=== PATIENT | female | born 1990 | race Caucasian/White ===

== ENCOUNTER 2020-10-04 05:29 | Inpatient (IN) | payer MEDICAID ==
[~2020-10-04] VITALS: Ht 165.1 cm; Wt 65.8 kg
[2020-10-04] MEDS: HALOPERIDOL 5 MG TABLET PO PRN (10:09)
[2020-10-04] MEDS: LORazepam 2 MG TABLET PO PRN (10:09)
[2020-10-04 10:45] VITALS: BP 127/93
[2020-10-04] MEDS ORDERED: INFLUENZA VIRUS VACCINE QVS 2020-21 (6MO+)/PF 60 MCG/0.5 ML SYRINGE IM ONE (11:15)
[2020-10-04] MEDS: BuPROPion HCL XL 150 MG ER TABLET PO SCH (13:21)
[2020-10-04 16:02] VITALS: BP 105/60
[2020-10-05 01:33] VITALS: BP 114/72
[2020-10-05] MEDS ORDERED: PETROLATUM,WHITE 28 GM JELLY TP PRN (07:00)
[2020-10-05] MEDS ORDERED: CloNIDine HCL 0.1 MG TABLET PO PRN (07:00)
[2020-10-05] MEDS ORDERED: ACETAMINOPHEN 325 MG TABLET PO PRN (07:00)
[2020-10-05] MEDS ORDERED: LOPERAMIDE HCL 2 MG CAPSULE PO PRN (07:00)
[2020-10-05] MEDS ORDERED: GuaiFENesin/D-METHORPHAN [SUGAR-FREE] 200-20MG/10 ML SYRUP UDCUP PO PRN (07:00)
[2020-10-05] MEDS ORDERED: MAG HYDROX/AL HYDROX/SIMETH ES 30 ML SUSPENSION UDCUP PO PRN (07:00)
[2020-10-05] MEDS ORDERED: ALBUTEROL SULFATE HFA 90 MCG/PUFF 8 GM INHALER IH PRN (07:00)
[2020-10-05] MEDS ORDERED: ONDANSETRON HCL 4 MG TABLET PO PRN (07:00)
[2020-10-05] MEDS ORDERED: MAGNESIUM HYDROXIDE SUSPENSION 30 ML UDCUP PO PRN (07:00)
[2020-10-05] MEDS ORDERED: IBUPROFEN 400 MG TABLET PO PRN (07:00)
[2020-10-05] MEDS ORDERED: DOCUSATE SODIUM 100 MG CAPSULE PO PRN (07:00)
[2020-10-05 08:10] VITALS: BP 112/74
[2020-10-05] MEDS: BuPROPion HCL XL 150 MG ER TABLET PO SCH (08:44)
[2020-10-05 16:08] VITALS: BP 112/78
[2020-10-05] MEDS: GABAPENTIN 300 MG CAPSULE PO SCH (16:50)
[2020-10-06 00:38] VITALS: BP 102/77
[2020-10-06 08:13] VITALS: BP 100/61
[2020-10-06] MEDS: GABAPENTIN 300 MG CAPSULE PO SCH ×2 (08:48→16:54)
[2020-10-06] MEDS: BuPROPion HCL XL 150 MG ER TABLET PO SCH (08:48)
[2020-10-06 08:50] LABS: BASOPHILS % (AUTO) 0.2 % (0.0-2.0); EOSINOPHILS % (AUTO) 2.5 % (1.0-6.0); HEMATOCRIT 38.5 % (36-46); HEMOGLOBIN 12.9 g/dL (12.0-16.0); LYMPHOCYTES # (AUTO) 2.1 K/uL (1.0-4.8); LYMPHOCYTES % (AUTO) 28.5 % (22.0-44.0); MEAN CORPUSCULAR HEMOGLOBIN 30.8 pg (26.0-34.0); MEAN CORPUSCULAR HGB CONC 33.6 G/dL (31.0-37.0); MEAN CORPUSCULAR VOLUME 92 fL (80-100); MONOCYTES # (AUTO) 0.6 K/uL (0.1-1.0); MONOCYTES % (AUTO) 7.9 % (2.0-9.0); NEUTROPHILS # (AUTO) 4.4 K/uL (1.8-7.7); NEUTROPHILS % (AUTO) 60.9 % (40.0-70.0); PLATELET COUNT (AUTO) 343 K/uL (150-450); RED CELL DISTRIBUTION WIDTH 12.3 % (11.5-14.5)
[2020-10-06 09:00] LABS: APPEARANCE,URINE CLOUDY (CLEAR); BILIRUBIN,URINE NEGATIVE (NEGATIVE); GLUCOSE, URINE (UA) NEGATIVE (NEGATIVE); KETONES,URINE NEGATIVE (NEGATIVE); LEUKOCYTE ESTERASE ,URINE SMALL (NEGATIVE); NITRATE,URINE POSITIVE (NEGATIVE); OCCULT BLOOD,URINE NEGATIVE (NEGATIVE); PROTEIN,URINE NEGATIVE (NEGATIVE)
[2020-10-06 09:06] LABS: AMPHET/METH SCREEN,URINE POSITIVE (NEGATIVE); BARBITURATE SCREEN, URINE NEGATIVE (NEGATIVE); BENZODIAZEPINES SCREEN,URINE NEGATIVE (NEGATIVE); CANNABINOID SCREEN,URINE NEGATIVE (NEGATIVE); COCAINE SCREEN,URINE POSITIVE (NEGATIVE); METHADONE SCREEN, URINE NEGATIVE (NEGATIVE); OPIATE SCREEN,URINE NEGATIVE (NEGATIVE)
[2020-10-06 09:07] LABS: PHENCYCLIDINE SCREEN,URINE NEGATIVE (NEGATIVE)
[2020-10-06 09:45] LABS: BACTERIA,URINE Many /HPF (None Seen); RBC,URINE None Seen /HPF (0-2); SQUAMOUS EPITHELIAL CELL,UR Many /LPF (None Seen)
[2020-10-06 09:52] LABS: ALANINE AMINOTRANSFERASE 23 U/L (12-78); ALBUMIN 3.2 g/dL (3.4-5.0); ALKALINE PHOSPHATASE 43 U/L (46-116); ANION GAP 8 mmol/L (8-16); ASPARTATE AMINOTRANSFERASE 16 U/L (15-37); BILIRUBIN,TOTAL 0.6 mg/dL (0.1-1.0); CALCIUM, TOTAL 8.3 mg/dL (8.8-10.5); CARBON DIOXIDE 26 mmol/L (22-29); CHLORIDE 103 mmol/L (98-107); CHOL/HDL RATIO 3.3 (3.9-5.7); CHOLESTEROL 144 mg/dL (131-200); FREE T4 (FREE THYROXINE) 0.85 ng/dL (0.76-1.46); GLOMERULAR FILTR. RATE CALC > 60 mL/min (>60); GLUCOSE,RANDOM 132 mg/dL (70-110); HCG,QUANTITATIVE < 1 mIU/mL (0-6); HDL CHOLESTEROL 44 mg/dL (40-60); LDL CHOL (CALC.) 87 mg/dL (0-130); POTASSIUM 3.8 mmol/L (3.5-5.1); SODIUM SERUM 137 mmol/L (136-145); THYROID STIMULATING HORMONE 1.42 uIU/mL (0.36-3.74); TOTAL PROTEIN, SERUM 6.1 g/dL (6.4-8.2); TRIGLYCERIDES 63 mg/dL (15-150); UREA NITROGEN, BLOOD 12 mg/dL (7-18)
[2020-10-06] MEDS: CEPHALEXIN MONOHYDRATE 500 MG CAPSULE PO SCH ×2 (12:35→16:54)
[2020-10-06 16:11] VITALS: BP 108/70
[2020-10-06] MEDS: LORazepam 2 MG TABLET PO PRN (16:54)
[2020-10-07] VITALS (8 sets, daily range): BP systolic 101–127; BP diastolic 59–87
[2020-10-07] MEDS: BuPROPion HCL XL 150 MG ER TABLET PO SCH (08:46)
[2020-10-07] MEDS: CEPHALEXIN MONOHYDRATE 500 MG CAPSULE PO SCH ×3 (08:46→16:59)
[2020-10-07] MEDS: GABAPENTIN 300 MG CAPSULE PO SCH ×2 (08:46→16:59)
[2020-10-07] MEDS: HALOPERIDOL 5 MG TABLET PO PRN (12:28)
[2020-10-07] MEDS: LORazepam 2 MG TABLET PO PRN (12:28)
[2020-10-07] MEDS ORDERED: LORazepam 2 MG TABLET PO PRN (13:45)
[2020-10-07] MEDS: NICOTINE 14 MG/24 HOUR PATCH TD PRN (13:46)
[2020-10-07] MEDS ORDERED: CYANOCOBALAMIN 1,000 MCG/ML VIAL IM ONE (14:00)
[2020-10-07] MEDS: FOLIC ACID 1 MG TABLET PO SCH (14:03)
[2020-10-07] MEDS: MULTIVITAMINS WITH MINERALS, THERAPEUTIC TABLET PO SCH (14:03)
[2020-10-07] MEDS: THIAMINE 100 MG TABLET PO SCH (16:59)
[2020-10-08] VITALS (8 sets, daily range): BP systolic 100–112; BP diastolic 62–70
[2020-10-08] MEDS ORDERED: LORazepam 2 MG TABLET PO PRN (07:00)
[2020-10-08] MEDS: MULTIVITAMINS WITH MINERALS, THERAPEUTIC TABLET PO SCH (08:59)
[2020-10-08] MEDS: BuPROPion HCL XL 150 MG ER TABLET PO SCH (08:59)
[2020-10-08] MEDS: THIAMINE 100 MG TABLET PO SCH ×2 (08:59→16:43)
[2020-10-08] MEDS: CEPHALEXIN MONOHYDRATE 500 MG CAPSULE PO SCH ×3 (08:59→16:43)
[2020-10-08] MEDS: FOLIC ACID 1 MG TABLET PO SCH (08:59)
[2020-10-08] MEDS: GABAPENTIN 300 MG CAPSULE PO SCH ×2 (09:00→16:43)
[2020-10-08] MEDS: LORazepam 2 MG TABLET PO SCH ×4 (09:00→20:44)
[2020-10-08] MEDS: ZOLPIDEM TARTRATE 10 MG TABLET PO PRN (20:54)
[2020-10-09 08:00] VITALS: BP 100/59
[2020-10-09] MEDS: GABAPENTIN 300 MG CAPSULE PO SCH ×2 (08:03→16:11)
[2020-10-09] MEDS: THIAMINE 100 MG TABLET PO SCH ×2 (08:04→16:11)
[2020-10-09] MEDS: MULTIVITAMINS WITH MINERALS, THERAPEUTIC TABLET PO SCH (08:04)
[2020-10-09] MEDS: LORazepam 2 MG TABLET PO SCH ×4 (08:04→21:25)
[2020-10-09] MEDS: BuPROPion HCL XL 150 MG ER TABLET PO SCH (08:04)
[2020-10-09] MEDS: CEPHALEXIN MONOHYDRATE 500 MG CAPSULE PO SCH ×3 (08:05→16:11)
[2020-10-09] MEDS: FOLIC ACID 1 MG TABLET PO SCH (08:05)
[2020-10-09 08:17] VITALS: BP 104/79
[2020-10-09 16:14] VITALS: BP 109/66
[2020-10-09 16:15] VITALS: BP 109/66
[2020-10-09 17:45] VITALS: BP 112/65
[2020-10-09] MEDS: HALOPERIDOL 5 MG TABLET PO PRN (17:56)
[2020-10-09] MEDS: NICOTINE 14 MG/24 HOUR PATCH TD PRN (18:20)
[2020-10-09] MEDS: ZOLPIDEM TARTRATE 10 MG TABLET PO PRN (21:25)
[2020-10-10 06:50] VITALS: BP 115/71
[2020-10-10] MEDS ORDERED: LORazepam 1 MG TABLET PO PRN (07:00)
[2020-10-10 08:29] VITALS: BP 104/60
[2020-10-10 08:47] VITALS: BP 104/60
[2020-10-10] MEDS: GABAPENTIN 300 MG CAPSULE PO SCH ×2 (09:01→16:42)
[2020-10-10] MEDS: FOLIC ACID 1 MG TABLET PO SCH (09:01)
[2020-10-10] MEDS: BuPROPion HCL XL 150 MG ER TABLET PO SCH (09:01)
[2020-10-10] MEDS: CEPHALEXIN MONOHYDRATE 500 MG CAPSULE PO SCH ×3 (09:01→16:42)
[2020-10-10] MEDS: THIAMINE 100 MG TABLET PO SCH ×2 (09:02→16:42)
[2020-10-10] MEDS: LORazepam 1 MG TABLET PO SCH ×4 (09:02→20:51)
[2020-10-10] MEDS: MULTIVITAMINS WITH MINERALS, THERAPEUTIC TABLET PO SCH (09:02)
[2020-10-10 11:00] VITALS: BP 110/80
[2020-10-10] MEDS: HALOPERIDOL 5 MG TABLET PO PRN (11:01)
[2020-10-10 16:05] VITALS: BP 105/60
[2020-10-10 16:19] VITALS: BP 104/60
[2020-10-10] MEDS: ZOLPIDEM TARTRATE 10 MG TABLET PO PRN (23:31)
[2020-10-11 05:39] VITALS: BP 107/71
[2020-10-11] MEDS ORDERED: LORazepam 1 MG TABLET PO PRN (07:00)
[2020-10-11] MEDS: GABAPENTIN 300 MG CAPSULE PO SCH ×2 (08:33→16:33)
[2020-10-11] MEDS: MULTIVITAMINS WITH MINERALS, THERAPEUTIC TABLET PO SCH (08:33)
[2020-10-11] MEDS: CEPHALEXIN MONOHYDRATE 500 MG CAPSULE PO SCH (08:33)
[2020-10-11] MEDS: THIAMINE 100 MG TABLET PO SCH ×2 (08:33→16:33)
[2020-10-11] MEDS: BuPROPion HCL XL 150 MG ER TABLET PO SCH (08:33)
[2020-10-11] MEDS: FOLIC ACID 1 MG TABLET PO SCH (08:35)
[2020-10-11 08:53] VITALS: BP 98/59
[2020-10-11] MEDS ORDERED: BUPR-93 PO (15:09)
[2020-10-11] MEDS ORDERED: GABA-1181 PO (15:10)
[2020-10-11 16:09] VITALS: BP 113/66
== END 2020-10-11 21:52 | disposition home or self-care (01) | DRG 751 ==
LOC: B3A 08:56 → B2S 10-11 08:50
PROVIDERS: ADMIT Psychiatry & Neurology Psychiatry; ATTEND Psychiatry & Neurology Psychiatry
DX: F33.3 Major depressive disorder, recurrent, severe with psychotic symptoms (principal); R45.851 Suicidal ideations; Z59.0 Homelessness; Z91.5 Personal history of self-harm; K59.00 Constipation, unspecified; F19.10 Other psychoactive substance abuse, uncomplicated; F10.20 Alcohol dependence, uncomplicated; Y90.9 Presence of alcohol in blood, level not specified; F15.10 Other stimulant abuse, uncomplicated; F14.10 Cocaine abuse, uncomplicated; Z79.899 Other long term (current) drug therapy; Z28.21 Immunization not carried out because of patient refusal
CPT/HCPCS: 80307; 84436; 84439; 84443; 87086; J3420

== ENCOUNTER 2020-11-23 19:52 | Inpatient (IN) | payer MEDICAID ==
[~2020-11-23] VITALS: Ht 170.2 cm; Wt 64.0 kg
[~2020-11-23 19:52] MED LIST: BUPR-93 PO; GABA-1181 PO
[2020-11-23 22:22] LABS: COVID AG,FIA SOURCE NASOPHARYNGEAL
[2020-11-23] MEDS ORDERED: HALOPERIDOL 5 MG TABLET PO ONE (23:00)
[2020-11-23 23:08] LABS: BASOPHILS % (AUTO) 0.4 % (0.0-2.0); EOSINOPHILS % (AUTO) 1.3 % (1.0-6.0); LYMPHOCYTES # (AUTO) 2.7 K/uL (1.0-4.8); LYMPHOCYTES % (AUTO) 31.9 % (22.0-44.0); MEAN CORPUSCULAR HEMOGLOBIN 29.8 pg (26.0-34.0); MEAN CORPUSCULAR HGB CONC 33.4 G/dL (31.0-37.0); MEAN CORPUSCULAR VOLUME 89 fL (80-100); MONOCYTES # (AUTO) 0.5 K/uL (0.1-1.0); MONOCYTES % (AUTO) 5.7 % (2.0-9.0); NEUTROPHILS # (AUTO) 5.1 K/uL (1.8-7.7); NEUTROPHILS % (AUTO) 60.7 % (40.0-70.0); PLATELET COUNT (AUTO) 382 K/uL (150-450); RED BLOOD CELL COUNT(AUTO) 4.38 MIL/uL (4.00-5.20); RED CELL DISTRIBUTION WIDTH 12.7 % (11.5-14.5)
[2020-11-23 23:11] LABS: ANION GAP 9 mmol/L (8-16); CALCIUM, TOTAL 8.5 mg/dL (8.8-10.5); CARBON DIOXIDE 29 mmol/L (22-29); CHLORIDE 104 mmol/L (98-107); CREATININE 0.62 mg/dL (0.60-1.30); GLOMERULAR FILTR. RATE CALC > 60 mL/min (>60); GLUCOSE,RANDOM 101 mg/dL (70-110); POTASSIUM 3.1 mmol/L (3.5-5.1); SODIUM SERUM 142 mmol/L (136-145); UREA NITROGEN, BLOOD 5 mg/dL (7-18)
[2020-11-23 23:34] LABS: ALANINE AMINOTRANSFERASE 20 U/L (12-78); ALBUMIN 3.6 g/dL (3.4-5.0); ALKALINE PHOSPHATASE 42 U/L (46-116); ASPARTATE AMINOTRANSFERASE 10 U/L (15-37); BILIRUBIN,TOTAL 0.2 mg/dL (0.1-1.0); HCG,QUANTITATIVE < 1 mIU/mL (0-6); TOTAL PROTEIN, SERUM 6.7 g/dL (6.4-8.2)
[2020-11-23] MEDS ORDERED: ChlordiazePOXIDE HCL 25 MG CAPSULE PO ONE (23:45)
[2020-11-23] MEDS ORDERED: POTASSIUM CHLORIDE 20 MEQ ER TABLET PO ONE (23:45)
[2020-11-24 00:43] LABS: AMPHET/METH SCREEN,URINE POSITIVE (NEGATIVE); BARBITURATE SCREEN, URINE NEGATIVE (NEGATIVE); BENZODIAZEPINES SCREEN,URINE NEGATIVE (NEGATIVE); CANNABINOID SCREEN,URINE NEGATIVE (NEGATIVE); COCAINE SCREEN,URINE NEGATIVE (NEGATIVE); METHADONE SCREEN, URINE NEGATIVE (NEGATIVE); OPIATE SCREEN,URINE NEGATIVE (NEGATIVE)
[2020-11-24 00:45] LABS: PHENCYCLIDINE SCREEN,URINE NEGATIVE (NEGATIVE)
[2020-11-24] MEDS ORDERED: HALOPERIDOL 5 MG TABLET PO PRN (09:00)
[2020-11-24] MEDS ORDERED: NICOTINE 14 MG/24 HOUR PATCH TD PRN (13:15)
[2020-11-24] MEDS: GABAPENTIN 300 MG CAPSULE PO SCH (16:56)
[2020-11-24 17:36] VITALS: BP 100/60
[2020-11-25 00:22] VITALS: BP 102/70
[2020-11-25] MEDS: ZOLPIDEM TARTRATE 10 MG TABLET PO PRN (00:29)
[2020-11-25] MEDS: BuPROPion HCL XL 150 MG ER TABLET PO SCH (08:20)
[2020-11-25] MEDS: GABAPENTIN 300 MG CAPSULE PO SCH ×2 (08:20→16:12)
[2020-11-25 10:01] VITALS: BP 100/60
[2020-11-25 17:34] VITALS: BP 100/60
[2020-11-25] MEDS: QUEtiapine FUMARATE 100 MG TABLET PO SCH (20:21)
[2020-11-26] VITALS (8 sets, daily range): BP systolic 98–172; BP diastolic 51–75
[2020-11-26] MEDS: GABAPENTIN 300 MG CAPSULE PO SCH ×2 (08:31→15:57)
[2020-11-26] MEDS: BuPROPion HCL XL 150 MG ER TABLET PO SCH (08:31)
[2020-11-26] MEDS ORDERED: DOCUSATE SODIUM 100 MG CAPSULE PO PRN (13:45)
[2020-11-26] MEDS ORDERED: CloNIDine HCL 0.1 MG TABLET PO PRN (13:45)
[2020-11-26] MEDS ORDERED: GuaiFENesin/D-METHORPHAN [SUGAR-FREE] 200-20MG/10 ML SYRUP UDCUP PO PRN (13:45)
[2020-11-26] MEDS ORDERED: LOPERAMIDE HCL 2 MG CAPSULE PO PRN (13:45)
[2020-11-26] MEDS ORDERED: MAGNESIUM HYDROXIDE SUSPENSION 30 ML UDCUP PO PRN (13:45)
[2020-11-26] MEDS ORDERED: IBUPROFEN 400 MG TABLET PO PRN (13:45)
[2020-11-26] MEDS ORDERED: ONDANSETRON HCL 4 MG TABLET PO PRN (13:45)
[2020-11-26] MEDS ORDERED: ALBUTEROL SULFATE HFA 90 MCG/PUFF 8 GM INHALER IH PRN (13:45)
[2020-11-26] MEDS ORDERED: PETROLATUM,WHITE 28 GM JELLY TP PRN (13:45)
[2020-11-26] MEDS ORDERED: ACETAMINOPHEN 325 MG TABLET PO PRN (13:45)
[2020-11-26] MEDS ORDERED: MAG HYDROX/AL HYDROX/SIMETH ES 30 ML SUSPENSION UDCUP PO PRN (13:45)
[2020-11-26] MEDS: NICOTINE 14 MG/24 HOUR PATCH TD PRN (15:57)
[2020-11-26] MEDS: LORazepam 2 MG TABLET PO PRN (15:57)
[2020-11-26] MEDS: QUEtiapine FUMARATE 100 MG TABLET PO SCH (19:52)
[2020-11-27] VITALS (7 sets, daily range): BP systolic 100–116; BP diastolic 60–72
[2020-11-27] MEDS: GABAPENTIN 300 MG CAPSULE PO SCH ×2 (09:11→16:18)
[2020-11-27] MEDS: BuPROPion HCL XL 150 MG ER TABLET PO SCH (09:11)
[2020-11-27] MEDS: LORazepam 2 MG TABLET PO PRN (16:18)
[2020-11-27] MEDS: QUEtiapine FUMARATE 100 MG TABLET PO SCH (20:33)
[2020-11-28 00:20] VITALS: BP 107/62
[2020-11-28 08:21] VITALS: BP 105/60
[2020-11-28] MEDS: BuPROPion HCL XL 150 MG ER TABLET PO SCH (08:29)
[2020-11-28] MEDS: GABAPENTIN 300 MG CAPSULE PO SCH ×2 (08:29→16:00)
[2020-11-28 09:19] LABS: BASOPHILS % (AUTO) 0.3 % (0.0-2.0); EOSINOPHILS % (AUTO) 3.4 % (1.0-6.0); HEMATOCRIT 37.1 % (36-46); HEMOGLOBIN 12.4 g/dL (12.0-16.0); LYMPHOCYTES # (AUTO) 2.9 K/uL (1.0-4.8); LYMPHOCYTES % (AUTO) 37.9 % (22.0-44.0); MEAN CORPUSCULAR HEMOGLOBIN 29.7 pg (26.0-34.0); MEAN CORPUSCULAR HGB CONC 33.3 G/dL (31.0-37.0); MEAN CORPUSCULAR VOLUME 89 fL (80-100); MONOCYTES # (AUTO) 0.7 K/uL (0.1-1.0); MONOCYTES % (AUTO) 9.3 % (2.0-9.0); NEUTROPHILS # (AUTO) 3.8 K/uL (1.8-7.7); NEUTROPHILS % (AUTO) 49.1 % (40.0-70.0); PLATELET COUNT (AUTO) 312 K/uL (150-450); RED BLOOD CELL COUNT(AUTO) 4.17 MIL/uL (4.00-5.20); RED CELL DISTRIBUTION WIDTH 12.8 % (11.5-14.5)
[2020-11-28 10:08] LABS: ALANINE AMINOTRANSFERASE 17 U/L (12-78); ALKALINE PHOSPHATASE 42 U/L (46-116); ANION GAP 6 mmol/L (8-16); ASPARTATE AMINOTRANSFERASE 12 U/L (15-37); BILIRUBIN,TOTAL 0.2 mg/dL (0.1-1.0); CALCIUM, TOTAL 8.5 mg/dL (8.8-10.5); CARBON DIOXIDE 29 mmol/L (22-29); CHLORIDE 108 mmol/L (98-107); CREATININE 0.79 mg/dL (0.60-1.30); GLOMERULAR FILTR. RATE CALC > 60 mL/min (>60); GLUCOSE,RANDOM 75 mg/dL (70-110); POTASSIUM 3.8 mmol/L (3.5-5.1); SODIUM SERUM 143 mmol/L (136-145); THYROID STIMULATING HORMONE 1.27 uIU/mL (0.36-3.74); TOTAL PROTEIN, SERUM 5.9 g/dL (6.4-8.2); UREA NITROGEN, BLOOD 13 mg/dL (7-18)
[2020-11-28 11:24] LABS: HEMOGLOBIN A1C 5.1 % (3.8-5.6)
[2020-11-28] MEDS: LORazepam 2 MG TABLET PO PRN ×2 (13:03→20:37)
[2020-11-28] MEDS: NICOTINE 14 MG/24 HOUR PATCH TD PRN (13:14)
[2020-11-28 16:05] VITALS: BP 126/73
[2020-11-28] MEDS: QUEtiapine FUMARATE 100 MG TABLET PO SCH (20:02)
[2020-11-29 04:52] VITALS: BP 122/67
[2020-11-29 08:01] VITALS: BP 118/78
[2020-11-29] MEDS: BuPROPion HCL XL 150 MG ER TABLET PO SCH (08:13)
[2020-11-29] MEDS: GABAPENTIN 300 MG CAPSULE PO SCH ×2 (08:13→16:02)
[2020-11-29 08:50] LABS: COVID AG,FIA SOURCE NASAL SWAB
[2020-11-29] MEDS: LORazepam 2 MG TABLET PO PRN (09:03)
[2020-11-29 09:40] LABS: AMPHET/METH SCREEN,URINE NEGATIVE (NEGATIVE); BARBITURATE SCREEN, URINE NEGATIVE (NEGATIVE); BENZODIAZEPINES SCREEN,URINE NEGATIVE (NEGATIVE); BILIRUBIN,URINE NEGATIVE (NEGATIVE); CANNABINOID SCREEN,URINE NEGATIVE (NEGATIVE); COCAINE SCREEN,URINE NEGATIVE (NEGATIVE); GLUCOSE, URINE (UA) NEGATIVE (NEGATIVE); KETONES,URINE NEGATIVE (NEGATIVE); METHADONE SCREEN, URINE NEGATIVE (NEGATIVE); NITRATE,URINE NEGATIVE (NEGATIVE); OCCULT BLOOD,URINE NEGATIVE (NEGATIVE); OPIATE SCREEN,URINE NEGATIVE (NEGATIVE); PH,URINE 7.5 (5.0-8.0); PROTEIN,URINE NEGATIVE (NEGATIVE); UROBILINOGEN,URINE 0.2 mg/dL (<=1.0)
[2020-11-29 09:41] LABS: APPEARANCE,URINE SLIGHTLY CLOUDY (CLEAR)
[2020-11-29 09:42] LABS: LEUKOCYTE ESTERASE ,URINE TRACE (NEGATIVE)
[2020-11-29 09:43] LABS: BACTERIA,URINE None Seen /HPF (None Seen); RBC,URINE None Seen /HPF (0-2); WBC,URINE 0-2 /HPF (0-5)
[2020-11-29 10:14] LABS: PHENCYCLIDINE SCREEN,URINE NEGATIVE (NEGATIVE)
[2020-11-29] MEDS ORDERED: BuPROPion HCL XL 150 MG ER TABLET PO SCH (11:30)
[2020-11-29] MEDS ORDERED: BuPROPion HCL XL 150 MG ER TABLET PO ONE (11:30)
[2020-11-29] MEDS: BusPIRone HCL 5 MG TABLET PO SCH ×2 (16:02→20:02)
[2020-11-29 16:08] VITALS: BP 104/73
[2020-11-29] MEDS ORDERED: QUEtiapine FUMARATE 200 MG TABLET PO SCH (21:00)
[2020-11-29] MEDS: ZOLPIDEM TARTRATE 10 MG TABLET PO PRN (22:28)
[2020-11-30 00:23] VITALS: BP 105/64
[2020-11-30] MEDS ORDERED: BUSP5TAB20 PO ×2 (06:04)
[2020-11-30] MEDS ORDERED: QUET200T PO (06:07)
[2020-11-30] MEDS ORDERED: BUPR-93 PO (06:07)
[2020-11-30] MEDS ORDERED: BusPIRone HCL 5 MG TABLET PO SCH (09:00)
[2020-11-30] MEDS ORDERED: BuPROPion HCL XL 150 MG ER TABLET PO SCH (09:00)
[2020-11-30] MEDS ORDERED: QUEtiapine FUMARATE 200 MG TABLET PO SCH (21:00)
== END 2020-11-30 07:30 | disposition home or self-care (01) | DRG 750 ==
LOC: EMS 19:58 → B2S 11-24 09:05 → UNDOADMIN 11-24 09:28 → B2S 11-24 09:28
DX: F25.1 Schizoaffective disorder, depressive type (principal); R45.851 Suicidal ideations; Z91.5 Personal history of self-harm; F15.10 Other stimulant abuse, uncomplicated; F10.10 Alcohol abuse, uncomplicated; F19.10 Other psychoactive substance abuse, uncomplicated; F17.200 Nicotine dependence, unspecified, uncomplicated; E87.6 Hypokalemia; Y90.2 Blood alcohol level of 40-59 mg/100 ml; F41.9 Anxiety disorder, unspecified; Z20.822 Contact with and (suspected) exposure to COVID-19
CPT/HCPCS: 80307; 83036; 84132; 84443; 87426; 99285; G0480

== ENCOUNTER 2024-07-13 22:33 | Emergency (ER) | payer MEDICAID, OTHER ==
[~2024-07-13] VITALS: Ht 170.2 cm; Wt 88.6 kg
[2024-07-13 22:49] VITALS: TEMP 98.4
[2024-07-14 01:47] VITALS: BP 105/55; PULSE 61; RESP 16; O2SAT 96
[2024-07-14 01:47] LABS: BASOPHILS % (AUTO) 0.4 % (0.0-2.0); EOSINOPHILS % (AUTO) 3.2 % (1.0-6.0); HEMATOCRIT 38.8 % (36-46); HEMOGLOBIN 12.8 g/dL (12.0-16.0); LYMPHOCYTES # (AUTO) 3.2 K/uL (1.0-4.8); LYMPHOCYTES % (AUTO) 33.5 % (22.0-44.0); MEAN CORPUSCULAR HEMOGLOBIN 29.1 pg (26.0-34.0); MEAN CORPUSCULAR HGB CONC 33.1 G/dL (31.0-37.0); MEAN CORPUSCULAR VOLUME 88 fL (80-100); MONOCYTES # (AUTO) 0.9 K/uL (0.1-1.0); MONOCYTES % (AUTO) 9.5 % (2.0-9.0); NEUTROPHILS # (AUTO) 5.1 K/uL (1.8-7.7); NEUTROPHILS % (AUTO) 53.4 % (40.0-70.0); PLATELET COUNT (AUTO) 329 K/uL (150-450); RED BLOOD CELL COUNT(AUTO) 4.42 MIL/uL (4.00-5.20); RED CELL DISTRIBUTION WIDTH 14.4 % (11.5-14.5); WHITE BLOOD COUNT (AUTO) 9.5 K/uL (4.5-11.0)
== END 2024-07-14 06:02 | disposition home or self-care (01) ==
LOC: EMS 22:33
DX: K62.5 Hemorrhage of anus and rectum (principal); F25.1 Schizoaffective disorder, depressive type; F17.210 Nicotine dependence, cigarettes, uncomplicated; F12.90 Cannabis use, unspecified, uncomplicated; Z88.1 Allergy status to other antibiotic agents
CPT/HCPCS: 85025; 99283

== ENCOUNTER 2025-06-19 13:53 | Emergency (ER) | payer OTHER ==
[~2025-06-19] VITALS: Ht 172.7 cm; Wt 90.0 kg
[~2025-06-19 13:53] MED LIST changes: +BUPR-50 PO; -BUPR-93 PO; +BUSP10TA23 PO; +DULO20CA23 PO; -GABA-1181 PO; +GABA-1201 PO; +HYDR50CA7 PO; +MELA5TAB40 PO; +PRAZ1 PO
[2025-06-19 14:03] VITALS: TEMP 98.2
[2025-06-19] MEDS: IBUPROFEN 400 MG TABLET PO ONE (14:25)
[2025-06-19 14:34] LABS: PLATELET COUNT (AUTO) 337 K/uL (150-450); RED BLOOD CELL COUNT(AUTO) 4.48 MIL/uL (4.00-5.20); RED CELL DISTRIBUTION WIDTH 14.7 % (11.5-14.5); WHITE BLOOD COUNT (AUTO) 8.3 K/uL (4.5-11.0)
[2025-06-19 14:50] LABS: CALCIUM, TOTAL 8.0 mg/dL (8.8-10.5); CREATININE 0.75 mg/dL (0.60-1.30); GLOMERULAR FILTR. RATE CALC > 60 mL/min (>60); GLUCOSE,RANDOM 122 mg/dL (70-110); SODIUM SERUM 141 mmol/L (136-145); UREA NITROGEN, BLOOD 13 mg/dL (7-18)
[2025-06-19 15:14] LABS: APPEARANCE,URINE CLEAR (CLEAR); GLUCOSE, URINE (UA) NEGATIVE (NEGATIVE); LEUKOCYTE ESTERASE ,URINE NEGATIVE (NEGATIVE); NITRATE,URINE NEGATIVE (NEGATIVE); OCCULT BLOOD,URINE NEGATIVE (NEGATIVE); PH,URINE DRUG SCREEN 6.5 (5.0-8.0); SPECIFIC GRAVITIY, URINE 1.014 (1.003-1.030)
[2025-06-19 16:40] LABS: ALCOHOL, URINE DRUG SCREEN NEGATIVE (NEGATIVE); AMPHET/METH SCREEN,URINE NEGATIVE (NEGATIVE); BARBITURATE SCREEN, URINE NEGATIVE (NEGATIVE); CANNABINOID SCREEN,URINE NEGATIVE (NEGATIVE); COCAINE SCREEN,URINE NEGATIVE (NEGATIVE); METHADONE SCREEN, URINE NEGATIVE (NEGATIVE)
[2025-06-19 17:14] LABS: COVID AG,FIA SOURCE NASAL SWAB
[2025-06-19] MEDS: PHENAZOPYRIDINE HCL 100 MG TABLET PO ONE (17:21)
[2025-06-19 17:35] LABS: SARS-COV2 (COVID) ANTIGEN,FIA Negative (Negative)
[2025-06-19 18:00] VITALS: BP 120/70; PULSE 60; RESP 17; O2SAT 98
== END 2025-06-19 18:33 | disposition home or self-care (01) ==
LOC: EMS 13:54
DX: R30.0 Dysuria (principal); R45.851 Suicidal ideations; Z88.1 Allergy status to other antibiotic agents; Z79.899 Other long term (current) drug therapy; Z02.89 Encounter for other administrative examinations; Z20.822 Contact with and (suspected) exposure to COVID-19
CPT/HCPCS: 99283; 87426; 80048; 85025; 36415; 80307; 81003; G0480